=== PATIENT | male | born 1995 | race Caucasian/White ===

== ENCOUNTER 2017-01-29 17:52 | Emergency (ER) | payer OTHER ==
[2017-01-29 18:07] VITALS: BP 138/74
[2017-01-29 18:49] LABS: BILIRUBIN,URINE NEGATIVE (NEGATIVE)
--- NOTE | 2017-01-29 18:50 | ED Physician Documentation ---
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 He says he was relaxed for the plane flight to here. On arrival to [employer], his command told he he was to get evaluated though. Patient denies suicidality. No history of self-harm. He wants to get home to see his girlfriend.) Timing - onset: How many hours ago (several hours ago) Contributing factors: No: Substance abuse - ETOH, Substance abuse - drugs Similar symptoms before: Has not had sx before (has depression in the past but no suicidality) Recently seen: Not recently seen Review of Systems Constitutional: denies: Fever, Chills Nose: denies: Rhinorrhea / runny nose, Congestion Throat: denies: Sore throat Respiratory: denies: Cough GI: denies: Vomiting, Diarrhea Neurologic: denies: Altered mental status, Headache, Head injury Psychiatric: reports: Depressed. denies: Suicidal, Anxiety Endocrine: denies: Weight loss Immunocompromised: denies: Immunocompromised PD PAST MEDICAL HISTORY - Past Medical History Past Medical History: Yes Psych: Depression - Past Surgical History Past Surgical History: No - Present Medications Home Medications: Ambulatory Orders Medication Instructions Recorded Confirmed Escitalopram Oxalate [Lexapro] 20 mg PO DAILY 05/30/16 01/29/17 Methocarbamol 500 mg PO 01/29/17 - Allergies Allergies/Adverse Reactions: Allergies Allergy/AdvReac Type Severity Reaction Status Date / Time No Known Drug Allergies Allergy Verified 05/30/16 12:35 - Social History Does the pt smoke?: No Smoking Status: Never smoker Does the pt drink ETOH?: No Does the pt have substance abuse?: No - Immunizations Immunizations are current?: Yes PD ED PE NORMAL - Vitals Vital signs reviewed: Yes - General General: Alert and oriented X 3, No acute distress, Well developed/nourished - Derm Derm: Normal color, Warm and dry - Neuro Neuro: Alert and oriented X 3, No motor deficit, Normal speech - Psych Psych: Normal mood, Normal affect Results - Vitals Vitals: Vital Signs - 24 hr 01/29/17 18:03 Temperature 36.8 C Heart Rate 97 Respiratory 18 Rate Blood Pressure 138/74 H O2 Saturation 98 Oxygen O2 Source Room air - Labs Labs: Laboratory Tests 01/29/17 01/29/17 01/29/17 18:08 18:44 18:44 WBC 4.6 L RBC 5.00 Hgb 15.2 Hct 44.0 MCV 88.0 MCH 30.3 MCHC 34.5 RDW 12.8 Plt Count 166 MPV 9.3 Neut # 3.1 Lymph # 1.0 L [place] # 0.4 Eos # 0.1 Baso # 0.0 Absolute Nucleated RBC 0.00 Nucleated RBCs 0.0 Sodium 139 Potassium 3.3 L Chloride 105 Carbon Dioxide 28 Anion Gap 6.0 BUN 12 Creatinine 0.7 Estimated GFR (MDRD) 142 Glucose 99 Calcium 9.6 Total Bilirubin 0.4 AST 21 ALT 21 Alkaline Phosphatase 45 Total Protein 7.5 Albumin 5.0 Globulin 2.5 Albumin/Globulin Ratio 2.0 Lipase 25 Urine Color YELLOW Urine Clarity CLEAR Urine pH 6.0 Ur Specific [place] 1.020 Urine Protein NEGATIVE Urine Glucose (UA) NEGATIVE Urine Ketones NEGATIVE Urine Occult Blood NEGATIVE Urine Nitrite NEGATIVE Urine Bilirubin NEGATIVE Urine Urobilinogen 0.2 (NORMAL) Ur Leukocyte Esterase NEGATIVE Ur Microscopic Review NOT INDICATED Urine Culture Comments NOT INDICATED Salicylates < 6.0 Urine Opiates Screen NEGATIVE Ur Oxycodone Screen NEGATIVE Urine Methadone Screen NEGATIVE Ur Propoxyphene Screen NEGATIVE Acetaminophen < 10 L Ur Barbiturates Screen NEGATIVE Ur Tricyclics Screen NEGATIVE Ur Phencyclidine Scrn NEGATIVE Ur Amphetamine Screen NEGATIVE U Methamphetamines Scrn NEGATIVE U Benzodiazepines Scrn NEGATIVE Urine Cocaine Screen NEGATIVE U Cannabinoids Screen NEGATIVE Ethyl Alcohol < 5.0 PD MEDICAL DECISION MAKING - ED course Complexity details: considered differential (he says he was upset when he said about hurting himself, and was while in airport on [facility]. Had time of the flight to relax and is not upset on the way. He was surprised when his command told him he had to come for evaluation. He wants to get home to see his girlfriend. He denies suicidality. ), d/w patient Departure - Departure Disposition: 01 Home, Self Care Clinical Impression: Suicidal thoughts, Stress response Condition: Stable Record reviewed to determine appropriate education?: Yes Instructions: ED Stress React Follow-Up: KEVEN Munguia [Provider Group] Comments: Drink lots of fluids and relax tonight. Continue regular medications. I suggest no alcohol for the next few days (realize that you do not usually drink anyway). Follow-up with your primary care in the next few days. Discharge Date/Time: 01/29/17 19:11
[2017-01-29 18:51] LABS: BASOPHILS % (AUTO) 0.9 %; EOSINOPHILS # (AUTO) 0.1 10^3/uL (0.0-0.7); EOSINOPHILS % (AUTO) 1.6 %; HGB - HEMOGLOBIN 15.2 g/dL (14.0-18.0); LYMPHOCYTES % (AUTO) 21.4 %; MEAN CORPUSCULAR HEMOGLOBIN 30.3 pg (27.0-31.0); MEAN CORPUSCULAR HGB CONC 34.5 g/dL (32.0-36.0); MEAN PLATELET VOLUME 9.3 fL (7.4-11.4); MONOCYTES # (AUTO) 0.4 10^3/uL (0.0-1.0); MONOCYTES % (AUTO) 8.8 %; NEUTROPHILS # (AUTO) 3.1 10^3/uL (1.5-6.6); NEUTROPHILS % (AUTO) 67.3 %; RED CELL DISTRIBUTION WIDTH 12.8 % (12.0-15.0); UNCORRECTED WHITE BLOOD COUNT 4.6 x10^3/uL; WHITE BLOOD COUNT 4.6 x10^3/uL (4.8-10.8)
[2017-01-29 18:52] LABS: UA CHARGE (STRIP ONLY) YES; UR CULTURE IF IND NOT INDICATED
[2017-01-29 19:28] LABS: BILIRUBIN,TOTAL 0.4 mg/dL (0.2-1.0); BUN - BLOOD UREA NITROGEN 12 mg/dL (6-20); CALCIUM 9.6 mg/dL (8.5-10.3); CARBON DIOXIDE - CO2 28 mmol/L (21-32); CHLORIDE 105 mmol/L (101-111); CREATININE 0.7 mg/dL (0.6-1.2); GFR - MDRD 142 (>89); GLUCOSE 99 mg/dL (70-100); LIPASE 25 U/L (22-51); POTASSIUM 3.3 mmol/L (3.5-5.0); SALICYLATE < 6.0 mg/dL; SODIUM 139 mmol/L (135-145); TOTAL PROTEIN 7.5 g/dL (6.7-8.2)
[2017-01-29 19:30] LABS: ACETAMINOPHEN < 10 ug/mL (10-30)
== END 2017-01-29 19:11 | disposition home or self-care (01) ==
LOC: ED 17:52
DX: F43.9 Reaction to severe stress, unspecified (principal); R45.851 Suicidal ideations
CPT/HCPCS: 36415; 80053; 80306; 80307; 80320; 80329; 81001; 81003; 83690; 85025; 87086; 99283

== ENCOUNTER 2017-03-16 13:42 | Emergency (ER) | payer OTHER ==
--- NOTE | 2017-03-16 15:16 | ED Physician Documentation ---
PD HPI NVD - Stated complaint Stated Complaint: DIZZY/UNABLE TO EAT - Chief complaint Chief Complaint: General - History obtained from History obtained from: Patient - History of Present Illness Timing - onset: Today Timing - details: Abrupt onset, Still present (he is having some vertigo come and go, but more consistent now with head movement. Has had some nasal congestion and sore throat for few days. No cough. No head injury. Has had some intermittent dizziness in the past, Rx with Meclizine by PMD. Patient says he had some nausea and vomiting after taking AM meds the past 2 days so is without his usual med (Lexapro) for 2 days. Has been on it for few months. No other new meds. Has had some intermittent pain left TMJ/face intermittently in the past. Also complains of some intermittent red blood with wiping after BM. denies firm/ strained BMs.), Intermittant Associated symptoms: Loss of appetite. No: Fever, Abdominal pain Contributing factors: Other (vertigo/dizzness.). No: Sick contact, Bad food, Travel, Recent antibiotics Worsened by: Moving, Position (head movements and looking up.). No: Eating Similar symptoms before: No diagnosis (presumed inner ear dizziness; has seen PCP and also seen by ENT in [place]. Rx with Meclizine.) Review of Systems Constitutional: denies: Fever, Chills Eyes: denies: Loss of vision, Decreased vision, Photophobia Ears: denies: Loss of hearing, Tinnitus/ringing Nose: reports: Rhinorrhea / runny nose, Congestion. denies: Sinus pressure / pain Throat: reports: Sore throat Respiratory: denies: Cough GI: reports: Nausea, Vomiting. denies: Diarrhea Neurologic: denies: Focal weakness, Altered mental status, Headache, Head injury PD PAST MEDICAL HISTORY - Past Medical History Cardiovascular: None Respiratory: None Neuro: None Endocrine/Autoimmune: None HEENT: Other (vertigo intermittent) Psych: Depression - Past Surgical History Past Surgical History: No - Present Medications Home Medications: Ambulatory Orders Medication Instructions Recorded Confirmed Escitalopram Oxalate [Lexapro] 20 mg PO DAILY 05/30/16 03/16/17 Methocarbamol 500 mg PO QPM 01/29/17 03/16/17 Cetirizine [ZyrTEC] 10 mg PO DAILY #20 tablet 03/16/17 Dexamethasone [Decadron] 4 mg PO DAILY #5 tablet 03/16/17 Ondansetron HCl [Zofran] 4 mg PO Q6H PRN #20 tablet 03/16/17 - Allergies Allergies/Adverse Reactions: Allergies Allergy/AdvReac Type Severity Reaction Status Date / Time No Known Drug Allergies Allergy Verified 03/16/17 13:53 - Social History Does the pt smoke?: No Smoking Status: Never smoker Does the pt drink ETOH?: No Does the pt have substance abuse?: No - Immunizations Immunizations are current?: Yes PD ED PE NORMAL - Vitals Vital signs reviewed: Yes - General General: Alert and oriented X 3, No acute distress, Well developed/nourished - HEENT HEENT: PERRL, EOMI (mild nystagmus to the right horizontally. ), Moist mucous membranes, Pharynx benign - Neck Neck: Supple, no meningeal sign, No adenopathy - Cardiac Cardiac: RRR, No murmur - Respiratory Respiratory: Clear bilaterally - Derm Derm: Normal color, Warm and dry - Extremities Extremities: No tenderness to palpate, Normal ROM s pain, Other (normal gait without ataxia) - Neuro Neuro: Alert and oriented X 3, head resident 2-12 intact, No motor deficit, No sensory deficit, Normal speech, Other Results - Vitals Vitals: Oxygen O2 Source Room air - EKG (time done) 15:44 Rate: Rate (enter#) (72) Rhythm: NSR [place]: Normal Intervals: Normal [place] QRS: Normal Ischemia: Normal ST segments. No: ST elevation c/w ischemia, ST depression Compare to prior EKG: Old EKG unavailable - Labs Labs: Laboratory Tests 03/16/17 03/16/17 03/16/17 15:45 15:45 15:45 WBC 7.9 RBC 5.27 Hgb 16.0 Hct 46.0 MCV 87.3 MCH 30.3 MCHC 34.7 RDW 12.6 Plt Count 198 MPV 9.2 Neut # 5.6 Lymph # 1.6 [place] # 0.5 Eos # 0.2 Baso # 0.0 Absolute Nucleated RBC 0.01 Nucleated RBC % 0.1 Sodium 141 Potassium 3.7 Chloride 101 Carbon Dioxide 28 Anion Gap 12.0 BUN 11 Creatinine 0.8 Estimated GFR (MDRD) 122 Glucose 91 Calcium 9.8 Magnesium 2.0 Total Bilirubin 0.9 AST 18 ALT 17 Alkaline Phosphatase 42 Total Protein 8.1 Albumin 5.2 Globulin 2.9 Albumin/Globulin Ratio 1.8 Lipase 27 TSH 3.48 PD MEDICAL DECISION MAKING - ED course Complexity details: considered differential (I think there is anxiety component to it. He does describe vertiginous symptoms and has some congestion though. No focal deficits. Doubt related to medications. description of blood instool sounds like hemorrhoidal with wiping only and intermittent. Exam deferred. ), d/ w patient Departure - Departure Disposition: 01 Home, Self Care Clinical Impression: Nausea, Dizziness Condition: Stable Record reviewed to determine appropriate education?: Yes Instructions: ED Vertigo Unspecified Follow-Up: KEVEN Munguia [Provider Group] [facility] [place] [Provider Group] Prescriptions: Cetirizine [ZyrTEC] 10 mg PO DAILY #20 tablet Dexamethasone [Decadron] 4 mg PO DAILY #5 tablet Ondansetron HCl [Zofran] 4 mg PO Q6H PRN #20 tablet PRN Reason: Nausea / Vomiting Comments: Drink lots of fluids. Use Decadron daily for 5 more days presuming inflammation through the inner ear and sinuses. Cetirizine antihistamine daily for a week or so. He can use ondansetron if needed for nausea. Continue usual medications. Add meclizine if needed for dizziness. Recheck if not improved over the next 2-3 days. He could also be evaluated by ear [facility] throat and [place] since has been a recurring problem. Forms: Activity restrictions Discharge Date/Time: 03/16/17 16:52
[2017-03-16 15:52] LABS: BASOPHILS % (AUTO) 0.5 %; EOSINOPHILS # (AUTO) 0.2 10^3/uL (0.0-0.7); EOSINOPHILS % (AUTO) 2.6 %; LYMPHOCYTES # (AUTO) 1.6 10^3/uL (1.5-3.5); LYMPHOCYTES % (AUTO) 19.7 %; MEAN CORPUSCULAR HEMOGLOBIN 30.3 pg (27.0-31.0); MEAN CORPUSCULAR HGB CONC 34.7 g/dL (32.0-36.0); MEAN CORPUSCULAR VOLUME 87.3 fL (80.0-94.0); MEAN PLATELET VOLUME 9.2 fL (7.4-11.4); MONOCYTES # (AUTO) 0.5 10^3/uL (0.0-1.0); MONOCYTES % (AUTO) 6.7 %; NEUTROPHILS # (AUTO) 5.6 10^3/uL (1.5-6.6); NEUTROPHILS % (AUTO) 70.5 %; NUCLEATED RED BLOOD CELLS AUTO 0.1 /100WBC; RED BLOOD COUNT 5.27 10^6/uL (4.70-6.10); RED CELL DISTRIBUTION WIDTH 12.6 % (12.0-15.0); UNCORRECTED WHITE BLOOD COUNT 7.9 x10^3/uL; WHITE BLOOD COUNT 7.9 x10^3/uL (4.8-10.8)
[2017-03-16] MEDS: DEXAMETHASONE 10 MG/ML VIAL PO STA (15:58)
[2017-03-16] MEDS: ONDANSETRON ODT 4 MG TABLET TL STA (15:58)
[2017-03-16] MEDS: MECLIZINE 12.5 MG TABLET PO STA (15:58)
[2017-03-16] MEDS ORDERED: DEXAMETHASONE 10 MG/ML VIAL ONE (16:00)
[2017-03-16] MEDS ORDERED: ONDANSETRON ODT 4 MG TABLET ONE (16:00)
[2017-03-16] MEDS ORDERED: MECLIZINE 12.5 MG TABLET PO ONE (16:00)
[2017-03-16 16:04] LABS: BILIRUBIN,TOTAL 0.9 mg/dL (0.2-1.0); CALCIUM 9.8 mg/dL (8.5-10.3); CREATININE 0.8 mg/dL (0.6-1.2); POTASSIUM 3.7 mmol/L (3.5-5.0); TOTAL PROTEIN 8.1 g/dL (6.7-8.2)
[2017-03-16 16:05] LABS: ALBUMIN/GLOBULIN RATIO 1.8 (1.0-2.2)
[2017-03-16 16:55] VITALS: BP 138/89
== END 2017-03-16 16:52 | disposition home or self-care (01) ==
LOC: ED 13:42
DX: R11.0 Nausea (principal); R42 Dizziness and giddiness
CPT/HCPCS: 36415; 80053; 83690; 83735; 84443; 85025; 93005; 99283; 99284